=== PATIENT | male | born 1995 | race Caucasian/White ===

== ENCOUNTER → 2023-12-28 | Outpatient (CLI) | payer OTHER ==
--- NOTE | 2023-12-28 17:02 | XR ---
EXAMINATION TYPE: XR foot complete RT DATE OF EXAM: 12/28/2023 4:52 PM CLINICAL INDICATION: Male, 28 years old with history of INJURY WITH PROLONGED PAIN; [facility] COMPARISON: None TECHNIQUE: XR foot complete RT examined in the AP, oblique, and lateral projections. FINDINGS: No evidence of any acute osseous pathology. IMPRESSION: No evidence of acute fracture. [facility], , 12/28/2023 4:59 PM
== END | disposition home or self-care (01) ==
LOC: LABMAIN 16:28
PROVIDERS: ATTEND Emergency Medicine
DX: M79.671 Pain in right foot (principal)